=== PATIENT | female | born 1990 | race African-American/Black ===

== ENCOUNTER 2018-12-18 18:09 | Emergency (ER) | payer SELFPAY ==
[~2018-12-18] VITALS: Ht 162.6 cm; Wt 75.7 kg
[~2018-12-18 18:09] MED LIST: AZIT500T PO; FERR325T14 PO; HYDR-3164 PO; NAPR-677 PO; NITR100C62 PO; PNV1TABL25 PO; PROM25AM6 PO
[2018-12-18 18:13] VITALS: BP 123/53
[2018-12-18] MEDS ORDERED: BUPIVACAINE MPF 0.5% 30 ML VIAL. INJ ONE (18:45)
[2018-12-18] MEDS ORDERED: HYDROcodone/APAP 10/325 1 TAB TABLET PO ONE (18:45)
[2018-12-18] MEDS ORDERED: LIDOCAINE 1% PF 2 ML VIAL. INJ ONE (18:45)
[2018-12-18] MEDS ORDERED: IBUP-1060 PO (18:55)
[2018-12-18] MEDS ORDERED: ACET-704 PO (18:55)
--- NOTE | 2018-12-18 18:55 | PHYS DOC ---
Past Medical History Past Medical History: No Pertinent History, Other Additional Past Medical Histor: spontaneous (LAKE VARGAS) Past Surgical History: No Surgical History (LAKE VARGAS) Alcohol Use: None Drug Use: None (LAKE VARGAS) Adult General Chief Complaint Chief Complaint: DENTAL PROBLEM HPI HPI Patient is a 28 year old F with lower left wisdom tooth pain. She arrives crying and pacing the room and states pain became intense this evening. She does not currently have a dentist. (LAKE VARGAS) Review of Systems Review of Systems Constitutional: Denies fever or chills HENT: Denies nasal congestion or sore throat. Reports dental pain. Respiratory: Denies cough or shortness of breath Cardiovascular: Denies chest pain. GI: Denies abdominal pain, nausea, vomiting, bloody stools or diarrhea : Denies dysuria or hematuria Musculoskeletal: Denies back pain or joint pain Integument: Denies rash or skin lesions Neurologic: Denies headache, focal weakness or sensory changes All other systems were reviewed and found to be within normal limits, except as documented in this note. (LAKE VARGAS) Current Medications Current Medications Current Medications Medications (Trade) Dose Ordered Sig/Princess Start Time Stop Time Status Last Admin Dose Admin Acetaminophen/ Hydrocodone Bitart (Lortab 10325) 1 tab 1X ONCE 12/18/18 18:45 12/18/18 18:46 DC 12/18/18 18:50 1 TAB Bupivacaine HCl (Sensorcaine Mpf 0.5%) 30 ml 1X ONCE 12/18/18 18:45 12/18/18 18:46 DC 12/18/18 18:50 30 ML Lidocaine HCl (Xylocaine-Mpf 1% 2ml Vial) 2 ml 1X ONCE 12/18/18 18:45 12/18/18 18:46 DC 12/18/18 18:50 2 ML (SHANNAN KINGSLEY DO) Allergies Allergies Allergies Coded Allergies Type Severity Reaction Last Updated Verified guaifenesin Allergy Severe angioedema 10/06/13 Yes (SHANNAN KINGSLEY DO) Physical Exam Physical Exam Constitutional: Well developed, well nourished, nontoxic appearing. Pt crying and in moderate distress. HENT: Normocephalic, atraumatic, bilateral external ears normal, oropharynx moist, no oral exudates, nose normal. Pt has impacted wisdom tooth on B lower sides, but inflamed tender gum on lower left where she is hurting. There is no obvious abscess noted. Neck: Normal range of motion, no tenderness, supple, no stridor. Cardiovascular:Heart rate regular rhythm, no murmur Lungs & Thorax: Bilateral breath sounds clear to auscultation Abdomen: Bowel sounds normal, soft, no tenderness, no masses, no pulsatile masses. Skin: Warm, dry, no erythema, no rash. Back: No tenderness, no CVA tenderness. Extremities: No tenderness, no cyanosis, no clubbing, ROM intact, no edema. Neurologic: Alert and oriented X 3, normal motor function, normal sensory function, no focal deficits noted. Psychologic: Affect normal, judgement normal, mood normal. (LAKE VARGAS) Current Patient Data Vital Signs Vital Signs Date Time Temp Pulse Resp B/P (MAP) Pulse Ox O2 Delivery O2 Flow Rate FiO2 12/18/18 18:50 20 12/18/18 18:13 98.2 115 123/53 (76) 96 Room Air 98.2 (SHANNAN KINGSLEY DO) EKG EKG [] (LAKE VARGAS) Radiology/Procedures Radiology/Procedures [] (LAKE VARGAS) Course & Med Decision Making Course & Med Decision Making Pertinent Labs and Imaging studies reviewed. (See chart for details) Using 1% lidocaine and 0.25% bupivicaine, I did a L sided dental block with pt reporting immediate improvement in pain. Discussed with pt that she needs very close f/u with dentist to discuss care plan and she agrees. Mouth wash or salt water gargles encouraged. (LAKE VARGAS) Dragon Disclaimer Dragon Disclaimer This electronic medical record was generated, in whole or in part, using a voice recognition dictation system. (LAKE VARGAS) Departure Departure Impression: Primary Impression: Pain, dental Disposition: 01 HOME, SELF-CARE Condition: IMPROVED Referrals: JOSÉ PANCHAL MD (PCP) Patient Instructions: Dental Pain, [id number] Additional Instructions: Mouth wash gargles, frequent tooth brushing. You need close follow up with a dentist for further care. Scripts Amoxicillin (AMOXICILLIN) 500 Mg Tablet 2 TAB PO BID, #40 TAB Prov: LAKE VARGAS 12/18/18 Acetaminophen With Codeine (TYLENOL WITH CODEINE #3 TABLET) 1 Each Tablet 1 TAB PO PRN Q4HRS PRN for PAIN for 4 Days, #21 TAB Prov: LAKE VARGAS 12/18/18 Ibuprofen (IBUPROFEN) 800 Mg Tablet 800 MG PO PRN Q6HRS PRN for INFLAMMATION for 7 Days, #21 TAB Prov: LAKE VARGAS 12/18/18 Attending Signature Attending Signature I have reviewed the PA/DIRECTOR OF SPORTS PERFORMANCE's note and plan of care. I was available for consultation as needed during the patient's visit in the emergency department. I agree with the clinical impression, plan, and disposition. (SHANNAN KINGSLEY DO) LAKE VARGAS Dec 18, 2018 18:55 SHANNAN KINGSLEY DO Dec 22, 2018 15:25
[2018-12-18] MEDS ORDERED: AMOX500T PO (19:09)
== END 2018-12-18 19:19 | disposition home or self-care (01) ==
LOC: ER 18:09
DX: K08.89 Other specified disorders of teeth and supporting structures (principal); Z88.8 Allergy status to other drugs, medicaments and biological substances
CPT/HCPCS: 64400; 99284; J3490

== ENCOUNTER 2019-01-16 15:32 | Observation (INO) | payer SELFPAY ==
[~2019-01-16] VITALS: Ht 162.6 cm; Wt 76.7 kg
[~2019-01-16 15:32] MED LIST changes: +ACET-704 PO; +AMOX500T PO; +IBUP-1060 PO
[2019-01-16] MEDS ORDERED: IV RINGERS,LACTATED 1000ML 1,000 ML IV SCH (15:52)
[2019-01-16] MEDS ORDERED: BUTORPHANOL 2 MG/ML VIAL. ONE (15:58)
[2019-01-16] MEDS ORDERED: BUTORPHANOL 2 MG/ML VIAL. IV ONE (16:00)
--- NOTE | 2019-01-16 17:17 | RAD ---
PREG MORE THAN OR EQ TO 14 WKS History: No care Comparison: None. Findings: Multiple transabdominal sonographic images of uterus are submitted. There is a single intrauterine fetus, breech position with head to maternal right side. Cervix is closed, measures about 3 cm in length and shortening in appearance without demonstrable funneling. There is adequate amniotic fluid, estimated MAYNOR 11.2 cm. There is demonstrable cardiac activity 141 bpm. movement was noted by technologist. Exam does not specifically evaluate anatomy. Biometry data are as follows: Biparietal diameter 6.28 cm corresponds 25 weeks 3 days Head circumference 23.85 cm corresponds 25 weeks 6 days Abdominal circumference 21.6 cm corresponds with 26 weeks 1 day Femur length 4.98 cm corresponds with 26 weeks 6 days HC/AC ratio 1.1 Estimated weight 917 g +/- 136 g. Adjusted ultrasound age 26 weeks 1 day with estimated delivery date by ultrasound of 04/23/2019 LMP dating is not provided Impression: 1. There is a single viable intrauterine fetus in breech presentation with head to the maternal right side. Adjusted ultrasound age is 26 weeks 1 day with estimated delivery date by ultrasound of 04/23/2019. Cervix is shortened about 3 cm in length. Electronically signed by: Samm Farr MD (01/16/2019 5:14 PM) [facility]
== END 2019-01-16 16:37 | disposition home or self-care (01) ==
LOC: 3 SO LND 15:32
PROVIDERS: ADMIT Obstetrics & Gynecology; ATTEND Obstetrics & Gynecology
DX: O62.9 Abnormality of forces of labor, unspecified (principal); Z3A.26 26 weeks gestation of pregnancy
CPT/HCPCS: 76805; 96374; G0379; J7120

== ENCOUNTER 2019-01-26 02:16 | Inpatient (IN) | payer SELFPAY ==
[~2019-01-26] VITALS: Ht 162.6 cm; Wt 77.1 kg
[2019-01-26] MEDS ORDERED: IV RINGERS,LACTATED 1000ML 1,000 ML IV SCH (02:43)
[2019-01-26] MEDS ORDERED: LIDOCAINE 1% PF 30 ML VIAL. INJ PRN (02:45)
[2019-01-26] MEDS ORDERED: 0.9 % SODIUM CHLORIDE 10 ML DISP.SYRIN. IV PRN ×2 (02:45→03:15)
[2019-01-26] MEDS ORDERED: OXYTOCIN 30 UNIT/500 ML PREMIX 500 ML IV PRN ×4 (02:45→03:15)
[2019-01-26] MEDS ORDERED: TERBUTALINE 1 MG/ML VIAL. SQ PRN (02:45)
[2019-01-26] MEDS ORDERED: IBUPROFEN 400 MG TABLET. PO PRN ×2 (02:45→03:15)
[2019-01-26 02:55] LABS: BILIRUBIN,URINE NEGATIVE (NEG); CLARITY,URINE CLEAR; COLOR,URINE YELLOW; NITRITE,URINE NEGATIVE (NEG); PH,URINE 6.5; PROTEIN,URINE 30 mg/dL (NEG-TRACE)
[2019-01-26 03:02] LABS: BARBITURATES NEG (NEG); BENZODIAZEPINES NEG (NEG); CANNABINOIDS NEG (NEG); COCAINE NEG (NEG); METHADONE NEG (NEG); OPIATES POS (NEG); PHENCYCLIDINE NEG (NEG)
[2019-01-26 03:06] LABS: AMPHETAMINE/METHAMPHETAMINE NEG (NEG)
[2019-01-26 03:09] LABS: BASO % 0 % (0-3); EOS # 0.2 x10^3/uL (0.0-0.7); EOS % 2 % (0-3); HEMATOCRIT 28.3 % (36.0-47.0); HEMOGLOBIN 9.4 g/dL (12.0-15.5); LYMPH # 2.6 x10^3/uL (1.0-4.8); LYMPH % 26 % (24-48); MEAN CORPUSCULAR HEMOGLOBIN 27 pg (25-35); MEAN CORPUSCULAR HGB CONC 33 g/dL (31-37); MEAN CORPUSCULAR VOLUME 82 fL (79-100); MONO # 0.6 x10^3/uL (0.0-1.1); MONO % 6 % (0-9); NEUT # 6.5 x10^3uL (1.8-7.7); NEUT % 66 % (31-73); PLATELET COUNT 177 x10^3/uL (140-400); RED BLOOD COUNT 3.46 x10^6/uL (3.50-5.40); WHITE BLOOD COUNT 9.8 x10^3/uL (4.0-11.0)
--- NOTE | 2019-01-26 03:09 | PDOC1 ---
OB - History Hx of Present Care: None Ultrasounds: Other (2nd trimester sono 2 wks ago) Medical Complications: Cardiovascular (h/o CHTN) Other Concerns: Pt. reports evaluation at 2 days and dx PTL with cervical dilation 4 cm. She left AMA from . Past Family/Social History * Past Medical, Surgical, Family and Obstetric Histories reviewed from chart. Blood Type: Unknown Rubella: Unknown RPR/VDRL: Unknown GBS Status: Unknown HBsAG: Unknown OB - Chief Complaint & HPI Date of Admission: Date of Admission: Jan 26, 2019 at 02:16 Chief Complaint/History : 5 Para: 4 EGA: 27 Reason for admission: labor, vaginal bleeding Admission Nurse Assessment Rev: Yes OB - Admission Exam Physical Exam HEENT: Normal Heart: Regular Rate Lungs: Clear Abdomen: Gravid, Tender Extremities: No tenderness or swelling Reflexes: Normal Cervical Dilatation: 10cm Effacement: 100% Station: +3 Membranes: Intact Heart Rate: Tachycardia Contractions on Admission: < 5 Minutes Apart Intensity: Firm Text A: 27 wks IUP No care PTL P: Admit for rapid delivery. QAMAR PIERRE Jr, MD Jan 26, 2019 03:09
[2019-01-26 03:10] LABS: BACTERIA,URINE 0 /HPF (0-FEW); SQUAMOUS EPITHELIAL CELL,UR MOD /LPF; WBC,URINE OCC /HPF (0-4)
--- NOTE | 2019-01-26 03:12 | PDOC ---
VAGINAL DELIVERY DATE DATE: 01/26/19 TIME: 03:09 : 5 Para: 5 EGA: 27 VAGINAL DELIVERY: VTX VACCUM ASSISTED: No PLACENTA: Spontaneous pending SEX: Female WEIGHT Weight [ 2 lbs ] Nuchal Cord: No Amniotic Fluid: Clear PAIN: Natural EPISIOTOMY: No EXTENSION: No EBL 400 ml COMPLICATIONS PTL/PTD; She reports PTL/PTD with previous 2 pregnancies. She denies any illicit drug use. Signs of Intrauterine Infectio: None Shoulder Dystocia: No QAMAR PIERRE Jr, MD Jan 26, 2019 03:12
[2019-01-26] MEDS ORDERED: BENZOCAINE 20% TOPICAL AEROSOL SPRAY 57GM CAN. TP PRN (03:15)
[2019-01-26] MEDS ORDERED: diphenhydrAMINE HCL 25 MG CAPSULE PO PRN (03:15)
[2019-01-26] MEDS ORDERED: MAGNESIUM HYDROXIDE 2,400 MG/30 ML ORAL.SUSP. PO PRN (03:15)
[2019-01-26] MEDS ORDERED: ZOLPIDEM 5 MG TABLET. PO PRN (03:15)
[2019-01-26] MEDS ORDERED: MMR per PROTOCOL. MC PRN (03:15)
[2019-01-26] MEDS ORDERED: SIMETHICONE 80 MG TAB.CHEW PO PRN (03:15)
[2019-01-26] MEDS ORDERED: oxyCODONE/APAP 5/325 1 TAB TABLET PO PRN (03:15)
[2019-01-26] MEDS ORDERED: ACETAMINOPHEN 325 MG TABLET. PO PRN (03:15)
[2019-01-26] MEDS ORDERED: PHENYLEPH/MINERAL OIL/PETROLAT RECTAL OINTMENT 57GM TUBE. RC PRN (03:15)
[2019-01-26] MEDS ORDERED: HYDROCORTISONE 1% TOPICAL OINTMENT 30GM TUBE. TP PRN (03:15)
[2019-01-26] MEDS ORDERED: MAG HYDROX/ALUMINUM HYD/SIMETH 30 ML ORAL.SUSP PO PRN (03:15)
[2019-01-26] MEDS ORDERED: DOCUSATE SODIUM 100 MG CAPSULE. PO PRN (03:15)
[2019-01-26 03:27] LABS: ALBUMIN 2.5 g/dL (3.4-5.0); ALBUMIN/GLOBULIN RATIO 0.8 (1.0-1.7); ALK PHOS 131 U/L (46-116); ALT (SGPT) 10 U/L (14-59); ANION GAP 13 (6-14); AST (SGOT) 17 U/L (15-37); BLOOD UREA NITROGEN 9 mg/dL (7-20); BUN/CREATININE RATIO 13 (6-20); CALCIUM 8.4 mg/dL (8.5-10.1); CARBON DIOXIDE 20 mmol/L (21-32); CHLORIDE 107 mmol/L (98-107); CREATININE 0.7 mg/dL (0.6-1.0); DIRECT BILIRUBIN < 0.1 mg/dL (0.0-0.2); GFR 122.4; GLUCOSE 104 mg/dL (70-99); POTASSIUM 3.7 mmol/L (3.5-5.1); SODIUM 140 mmol/L (136-145); TOTAL BILIRUBIN 0.1 mg/dL (0.2-1.0); TOTAL PROTEIN 5.8 g/dL (6.4-8.2)
[2019-01-26 04:27] VITALS: BP 116/55
--- NOTE | 2019-01-26 05:16 | NUR ---
pt walking on unit. Asks for family to be let out. Told by staff she couldnt go out of locked unit with IV still in, states she isn't going anywhere. When door unlocked pt went out door with family before she could be stopped. Security called.
--- NOTE | 2019-01-26 05:19 | NUR ---
call from security, he is escorting her back up to unit.
--- NOTE | 2019-01-26 05:30 | NUR ---
pt states again after RN explains to patient that she cannot go outside for "fresh Air" this soon after delivery, pt states she is leaving A, escorted to [address] [place] [address] to collect belongings
--- NOTE | 2019-01-26 05:55 | NUR ---
RN checked on patient she is resting in room 341 bed, states she is going to stay for a while
[2019-01-26 06:05] VITALS: BP 97/56
--- NOTE | 2019-01-26 06:10 | NUR ---
Patient ambulated to room 341 with staff and security by her side. Patient refusing to answer admission questions or allow me to do her admission assessment. She laid on her right side and let me look at her peripad but she wouldn't allow me to do an accurate fundal check with her flat on her back. Patient had signed an AMA form earlier but she says she needs a ride. I educated patient on the use of her call light and told her to call me if she needed any help. Patient pulled blankets over her head.
--- NOTE | 2019-01-26 08:10 | NUR ---
Pt. ambulated to L&D door with belongings, states she wants to leave. 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 Pt. denies pain. States, "I just want to get out of here," and states she is aware of risks involved as discussed by Jason Barrios RN. Pt. ambulated independently off floor, left AMA with belongings. Dr. Schumacher notified via telephone that Pt. left AMA. Damaso Casiano RN
[2019-01-27] MEDS ORDERED: FERROUS SULFATE 325 MG TABLET. PO SCH (08:00)
--- NOTE | 2019-01-29 10:09 | PATHOLOGY ---
[facility] Accession Number: [id number] . 01 Material submitted: . placenta - PLACENTA . 01 Clinical history: . , no care, vagdel on arrival to unit para: 5 EDC: 04/23/2019 GA 27.4 weeks . 02 Diagnosis: Placenta: - Findings compatible with third trimester placenta (312 grams). - Blood clot present on the maternal surface measuring 4.0 cm in greatest dimension. - Three vessel umbilical cord; negative for vasculitis and funisitis. - Placental membranes; negative for acute chorioamnionitis. (MAP/db; 01/28/19) LBQ/01/28/2019 . 02 Electronically signed: . Homer Caldera MD, Pathologist NPI- [id number] . 01 Gross description: . The specimen is received in formalin labeled "Juanito De La Rosa, placenta" and consists of an oval mcgovern placenta measuring 16.3 x 12.7 x 2.5 cm and weighing 312 g after removal of membranes and umbilical cord. The membranes are pink-cisneros, thin, translucent, and focally opaque. The surface is blue-tate and well vascularized with an eccentrically inserted 3 vessel umbilical cord, 4.1 from edge. The cord measures 23.1 by up to 1.4 cm and is white, edematous with reduced twists. The maternal surface shows complete and intact cotyledons with a depressed area near the center of the disc with attached clot (4.0 x 2.0 cm). Sectioning reveals a maroon-red and spongy parenchyma with no parenchymal lesions. Pipe Insulator sections are submitted as follows: . A1: Periphery and membrane roll A2: Umbilical cord A3-A4: Depressed area with attached clot A5: Full-thickness section (SDY; 01/27/2019) SYU/SYU . 02 Pathologist provided ICD-10: O43.893, Z37.0, Z3A.27 . 02 CPT . 929291 Specimen Comment: A courtesy copy of this report has been sent to Specimen Comment: [phone]. Specimen Comment: Report sent to Performed at: [address], [place] [id number] MD Osmar Judd MD Phone: [phone] Performed at: [address] [id number] MD Elsy Garnica MD Phone: [phone]
== END 2019-01-26 08:10 | disposition left against medical advice (07) | DRG 806 ==
LOC: 3 SO LND 02:16 → 3 NORTH 06:07
PROVIDERS: ADMIT Obstetrics & Gynecology; ATTEND Obstetrics & Gynecology
PROC: 10E0XZZ Delivery of Products of Conception, External Approach (ICD-10-PCS; principal; 2019-01-26)
DX: O60.12X0 Preterm labor second trimester with preterm delivery second trimester, not applicable or unspecified (principal); O10.92 Unspecified pre-existing hypertension complicating childbirth; Z37.0 Single live birth; Z3A.27 27 weeks gestation of pregnancy
CPT/HCPCS: 36415; 80053; 80076; 80307; 81001; 85025; 86592; 86762; 86850; 86900; 86901; 87340; 88307; J2590; J7120

== ENCOUNTER 2019-12-31 16:10 | Emergency (ER) | payer OTHER ==
[~2019-12-31] VITALS: Ht 162.6 cm; Wt 74.0 kg
[~2019-12-31 16:10] MED LIST changes: -IV NORMAL SALINE 1000ML BAG 1,000 ML IV ONE; -MORPHINE SULFATE 2 MG/ML VIAL. IV ONE; -ONDANSETRON PF 4 MG/2 ML VIAL. IVP ONE
[2019-12-31 16:30] LABS: BASO # 0.1 x10^3/uL (0.0-0.2); BASO % 1 % (0-3); EOS # 0.1 x10^3/uL (0.0-0.7); EOS % 1 % (0-3); HEMATOCRIT 34.6 % (36.0-47.0); HEMOGLOBIN 11.2 g/dL (12.0-15.5); LYMPH # 7.1 x10^3/uL (1.0-4.8); LYMPH % 55 % (24-48); MEAN CORPUSCULAR HEMOGLOBIN 26 pg (25-35); MEAN CORPUSCULAR HGB CONC 32 g/dL (31-37); MEAN CORPUSCULAR VOLUME 79 fL (79-100); MONO # 0.6 x10^3/uL (0.0-1.1); MONO % 5 % (0-9); NEUT # 5.2 x10^3/uL (1.8-7.7); NEUT % 40 % (31-73); PLATELET COUNT 281 x10^3/uL (140-400); RED BLOOD COUNT 4.36 x10^6/uL (3.50-5.40); RED CELL DISTRIBUTION WIDTH 16.4 % (11.5-14.5); WHITE BLOOD COUNT 13.1 x10^3/uL (4.0-11.0)
[2019-12-31] MEDS ORDERED: IV NORMAL SALINE 1000ML BAG 1,000 ML IV ONE ×2 (16:30→18:00)
[2019-12-31 16:39] LABS: CALCIUM 8.6 mg/dL (8.5-10.1); CREATININE 0.8 mg/dL (0.6-1.0); GFR 104.1; POTASSIUM 3.1 mmol/L (3.5-5.1)
[2019-12-31 16:44] LABS: ALBUMIN 3.3 g/dL (3.4-5.0); ALBUMIN/GLOBULIN RATIO 1.1 (1.0-1.7); TOTAL BILIRUBIN 0.2 mg/dL (0.2-1.0); TOTAL PROTEIN 6.4 g/dL (6.4-8.2)
--- NOTE | 2019-12-31 17:15 | RAD ---
OB <14 WKS W/TV History: Vaginal bleeding Comparison: None. Findings: Multiple transabdominal sonographic images of pelvis are submitted. Uterus measured 14 x 8 x 8 cm. There is no significant free fluid. Endometrium is heterogeneous and thickened, estimated about 2.8 cm in thickness. No intrauterine gestational sac is demonstrated at this time. Transvaginal ultrasound: Multiple transvaginal sonographic images of the pelvis are submitted. There is again thickened and heterogeneous appearance of the endometrium which measures about 2.6 cm in thickness, no intrauterine gestational sac demonstrated. Left ovary measured about 2.5 x 4.6 x 2.5 cm, normal low resistance vascularity. There is a hypoechoic lesion of the left ovary about 1.7 x 2.3 x 2.4 cm. Right ovary measured 2.5 x 3.7 x 1.4 cm with normal low resistance vascularity. Impression: 1. No intrauterine gestational sac is demonstrated at this time, heterogeneous and thickened endometrium. Correlation with quantitative beta hCG values and short-term imaging follow-up if needed is recommended. 2. There is left adnexal cyst up to 2.4 cm. Electronically signed by: Samm Farr MD (12/31/2019 5:12 PM) [facility]
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
[2019-12-31 18:39] VITALS: BP 109/53
[2019-12-31] MEDS ORDERED: medroxyPROGESTERone IM 150 MG/ML VIAL. IM ONE (18:45)
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
[2019-12-31 19:11] LABS: BILIRUBIN,URINE SMALL (NEG); CLARITY,URINE CLOUDY; COLOR,URINE RED; NITRITE,URINE NEGATIVE (NEG); PROTEIN,URINE 100 mg/dL (NEG-TRACE)
[2019-12-31 19:20] LABS: SQUAMOUS EPITHELIAL CELL,UR FEW /LPF
[2019-12-31 19:21] LABS: BACTERIA,URINE 0 /HPF (0-FEW); RBC,URINE TNTC /HPF (0-2)
[2019-12-31 19:27] LABS: AMPHETAMINE/METHAMPHETAMINE NEG (NEG); BARBITURATES NEG (NEG); BENZODIAZEPINES NEG (NEG); CANNABINOIDS NEG (NEG); COCAINE NEG (NEG); METHADONE NEG (NEG); OPIATES POS (NEG); PHENCYCLIDINE NEG (NEG)
== END 2019-12-31 19:11 | disposition home or self-care (01) ==
LOC: ER 16:10
DX: O03.9 Complete or unspecified spontaneous abortion without complication (principal); O99.331 Smoking (tobacco) complicating pregnancy, first trimester; F17.200 Nicotine dependence, unspecified, uncomplicated; Z88.1 Allergy status to other antibiotic agents; Z3A.01 Less than 8 weeks gestation of pregnancy
CPT/HCPCS: 36415; 76801; 76817; 80053; 80307; 81001; 84702; 85025; 86850; 86900; 86901; 87086; 99285; G0480; J7030

== ENCOUNTER → 2019-12-31 | Emergency (ER) | payer OTHER ==
[~2019-12-31] VITALS: Ht 162.6 cm; Wt 74.0 kg
[~2019-12-31] MED LIST changes: +IV NORMAL SALINE 1000ML BAG 1,000 ML IV ONE; +MORPHINE SULFATE 2 MG/ML VIAL. IV ONE; +ONDANSETRON PF 4 MG/2 ML VIAL. IVP ONE
[2019-12-31 14:22] VITALS: BP 127/55
[2019-12-31 15:03] LABS: BASO % 0 % (0-3); EOS # 0.1 x10^3/uL (0.0-0.7); EOS % 1 % (0-3); HEMATOCRIT 34.6 % (36.0-47.0); HEMOGLOBIN 11.6 g/dL (12.0-15.5); LYMPH # 2.6 x10^3/uL (1.0-4.8); LYMPH % 42 % (24-48); MEAN CORPUSCULAR HEMOGLOBIN 27 pg (25-35); MEAN CORPUSCULAR HGB CONC 34 g/dL (31-37); MEAN CORPUSCULAR VOLUME 79 fL (79-100); MONO # 0.3 x10^3/uL (0.0-1.1); MONO % 5 % (0-9); NEUT # 3.2 x10^3/uL (1.8-7.7); NEUT % 51 % (31-73); PLATELET COUNT 204 x10^3/uL (140-400); RED BLOOD COUNT 4.36 x10^6/uL (3.50-5.40); RED CELL DISTRIBUTION WIDTH 16.6 % (11.5-14.5); WHITE BLOOD COUNT 6.2 x10^3/uL (4.0-11.0)
[2019-12-31 15:12] LABS: CALCIUM 8.5 mg/dL (8.5-10.1); CREATININE 0.6 mg/dL (0.6-1.0); GFR 145.1; POTASSIUM 3.9 mmol/L (3.5-5.1)
--- NOTE | 2019-12-31 15:12 | PHYS DOC ---
Past Medical History Past Medical History: No Pertinent History Additional Past Medical Histor: spontaneous Past Surgical History: No Surgical History Smoking Status: Current Every Day Smoker Alcohol Use: None Drug Use: None General Adult EDM: Chief Complaint: VAGINAL BLEEDING HPI: HPI: Patient is a 29 year old female G7 P with 1 miscarriage who presents with vagi nal bleeding and that began an hour prior to coming to the ED. Patient states her periods are irregular but she reports having a short cycle around December 19, 2019. She is also complaining of lower pelvic cramping. Patient denies any concerns for STDs. She states the last time she had a miscarriage was due to stress. She states right now she is under a lot of stress. Denies any suicidal or homicidal ideations. Review of Systems: Review of Systems: Constitutional: Denies fever or chills. [] Eyes: Denies change in visual acuity. [] HENT: Denies nasal congestion or sore throat. [] Respiratory: Denies cough or shortness of breath. [] Cardiovascular: Denies chest pain or edema. [] GI: Reports vaginal bleeding in , reports abdominal cramping, denies nausea, vomiting, bloody stools or diarrhea. [] : Denies dysuria. [] Musculoskeletal: Denies back pain or joint pain. [] Integument: Denies rash. [] Neurologic: Denies headache, focal weakness or sensory changes. [] Psychiatric: Denies depression or anxiety. [] Heart Score: Risk Factors: Risk Factors: DM, Current or recent (<one month) smoker, HTN, HLP, family history of CAD, obesity. Risk Scores: Score 0 - 3: 2.5% MACE over next 6 weeks - Discharge Home Score 4 - 6: 20.3% MACE over next 6 weeks - Admit for Clinical Observation Score 7 - 10: 72.7% MACE over next 6 weeks - Early Invasive Strategies Current Medications: Current Medications Medications (Trade) Dose Ordered Sig/Princess Start Time Stop Time Status Last Admin Dose Admin Morphine Sulfate (Morphine Sulfate) 2 mg 1X ONCE 12/31/19 14:30 12/31/19 14:31 DC Ondansetron HCl (Zofran) 4 mg 1X ONCE 12/31/19 14:30 12/31/19 14:31 DC Sodium Chloride 1,000 ml @ 1,000 mls/hr 1X ONCE 12/31/19 14:30 12/31/19 15:29 Allergies: Allergies: Allergies Coded Allergies Type Severity Reaction Last Updated Verified guaifenesin Allergy Severe angioedema 10/06/13 Yes Physical Exam: PE: Constitutional: Well developed, well nourished, no acute distress, non-toxic appearance. [] HENT: Normocephalic, atraumatic, bilateral external ears normal, oropharynx moist, no oral exudates, nose normal. [] Eyes: PERRLA, EOMI, conjunctiva normal, no discharge. [] Neck: Normal range of motion, no tenderness, supple, no stridor. [] Cardiovascular:Heart rate regular rhythm, no murmur [] Lungs & Thorax: Bilateral breath sounds clear to auscultation [] Abdomen: Bowel sounds normal, soft, no tenderness, no masses, no pulsatile masses. [] Pelvic exam External pelvic has moderate amount of what appears to be products of conception. There is mild bleeding noted in the vaginal vault, the cervix appears open and has mild amount of blood trickling down. No pooling. No adnexal tenderness, no CMT. Forceps were used as well as caught on tip swabs to remove most of the blood in the vaginal vault. Bleeding slowed down. Skin: Warm, dry, no erythema, no rash. [] Back: No tenderness, no CVA tenderness. [] Extremities: No tenderness, no cyanosis, no clubbing, ROM intact, no edema. [] Neurologic: Alert and oriented X 3, normal motor function, normal sensory function, no focal deficits noted. [] Psychologic: Affect normal, judgement normal, mood normal. [] Current Patient Data: Labs: Laboratory Tests Test 12/31/19 14:45 White Blood Count 6.2 x10^3/uL (4.0-11.0) Red Blood Count 4.36 x10^6/uL (3.50-5.40) Hemoglobin 11.6 g/dL (12.0-15.5) L Hematocrit 34.6 % (36.0-47.0) L Mean Corpuscular Volume 79 fL (79-100) Mean Corpuscular Hemoglobin 27 pg (25-35) Mean Corpuscular Hemoglobin Concent 34 g/dL (31-37) Red Cell Distribution Width 16.6 % (11.5-14.5) H Platelet Count 204 x10^3/uL (140-400) Neutrophils (%) (Auto) 51 % (31-73) Lymphocytes (%) (Auto) 42 % (24-48) Monocytes (%) (Auto) 5 % (0-9) Eosinophils (%) (Auto) 1 % (0-3) Basophils (%) (Auto) 0 % (0-3) Neutrophils # (Auto) 3.2 x10^3/uL (1.8-7.7) Lymphocytes # (Auto) 2.6 x10^3/uL (1.0-4.8) Monocytes # (Auto) 0.3 x10^3/uL (0.0-1.1) Eosinophils # (Auto) 0.1 x10^3/uL (0.0-0.7) Basophils # (Auto) 0.0 x10^3/uL (0.0-0.2) Laboratory Tests 12/31/19 14:45 Vital Signs: Vital Signs Date Time Temp Pulse Resp B/P (MAP) Pulse Ox O2 Delivery O2 Flow Rate FiO2 12/31/19 14:22 98.4 65 12 127/55 (79) 100 Room Air 98.4 EKG: EKG: [] Radiology/Procedures: Radiology/Procedures: [] Course & Med Decision Making: Course & Med Decision Making Pertinent Labs and Imaging studies reviewed. (See chart for details) This is a 29-year-old female patient 7 para 5 presenting to the ED today with vaginal bleeding and that began an hour prior to coming to the ED. Patient arrives in the ED with products of conception in high exterior vaginal area. Pelvic exam was done, Q-tips and forceps were used to remove some of the products of conception as well as blood that was in the vaginal vault. Bleeding has slowed down. 1505 she states she received a call her 4 year old son ran out of the house into the street and was hit by a moving vehicle and "it does not look good" she had to leave AMA. I spoke to her. She is A&OX4, understands to risk of leaving AMA including and disability. Dragon Disclaimer: Dragon Disclaimer: This electronic medical record was generated, in whole or in part, using a voice recognition dictation system. Departure Departure Impression: Primary Impression: Threatened miscarriage in early Disposition: 07 AGAINST MEDICAL ADVICE Condition: STABLE Referrals: NO PCP (PCP) ADDIE CHAIREZ APRN December 31, 2019 15:12
[2019-12-31 15:18] LABS: ALBUMIN 3.2 g/dL (3.4-5.0); TOTAL BILIRUBIN 0.2 mg/dL (0.2-1.0); TOTAL PROTEIN 6.4 g/dL (6.4-8.2)
--- NOTE | 2020-01-02 16:06 | PATHOLOGY ---
[facility] Accession Number: [id number] . 01 Material submitted: . PART A: product of conception - VAGINAL SPECIMEN PRODUCT OF CONCEPTION PART B: product of conception - TISSUE OBTAINED FROM PELVIC EXAM POSSIBLE PRODUCTS OF CONCEPTION . 01 Clinical history: . None provided . 02 Diagnosis: A. Vaginal specimen: - Blood clot - no chorionic villi identified. . B. Pelvic exam tissue: - Products of conception, comprised of immature chorionic villi showing focal degenerative changes and intervillous fibrin deposition, and predominant segments of decidual tissue showing focal hemorrhage and acute inflammation. . (JPM:mml; 01/02/2020) [facility] 01/02/2020 1557 Local . 02 Electronically signed: . Alex De La Rosa MD, Pathologist NPI- [id number] . 01 Gross description: . A. The specimen is received in formalin, labeled "Juanito De La Rosa, products of conception". Received is a large amount of blood coagulum measuring 10.2 x 8.8 x 3.8 cm in aggregate dimensions. Extensive sectioning reveals no grossly distinct soft tissue. or embryonic tissue is not grossly identified. The specimen is submitted representatively in cassettes A1 and A2. . B. The specimen is received in formalin, labeled "Juanito Hartgins". The specimen is additionally labeled on the requisition as, "tissue obtained from pelvic exam; possible products of conception". Received are multiple segments of pink-tate to dusky tate-brown soft tissue, consistent with decidua, measuring 6.7 x 5.2 x 1.0 cm in aggregate dimensions. Villiform tissue is not grossly identified. or embryonic tissue is not grossly distinct. Vesicular structures are absent. The specimen is submitted representatively in cassettes B1 through B3. (CAA; 01/01/2020) [facility] 01/01/2020 1658 Local . 02 Pathologist provided ICD-10: N93.9 . 02 CPT . 142007, [id number] Specimen Comment: A courtesy copy of this report has been sent to [phone] Specimen Comment: Report sent to Performed at: 01 [facility] [address], [place] [id number] MD Osmar Judd MD Phone: [phone] Performed at: 02 [facility] [address], [place] [id number] MD Alex De La Rosa MD Phone: [phone]
== END ==
LOC: ER 14:17
DX: O20.0 Threatened abortion (principal); O99.331 Smoking (tobacco) complicating pregnancy, first trimester; F17.200 Nicotine dependence, unspecified, uncomplicated; Z98.890 Other specified postprocedural states; Z88.8 Allergy status to other drugs, medicaments and biological substances
CPT/HCPCS: 36415; 80053; 84702; 85025; 99284; G0480